=== PATIENT | male | born 2000 | race Two or more races ===

== ENCOUNTER → 2024-12-25 08:15 | Outpatient (BNVA) | payer OTHER, SELFPAY | PROVIDERS: Visit Provider Registered Nurse | DX: S60.212A Contusion of left wrist, initial encounter (principal); S63.502A Unspecified sprain of left wrist, initial encounter; S60.811A Abrasion of right wrist, initial encounter; S80.01XA Contusion of right knee, initial encounter; V53.0XXA Driver of pick-up truck or van injured in collision with car, pick-up truck or van in nontraffic accident, initial encounter; Y92.411 Interstate highway as the place of occurrence of the external cause; M23.91 Unspecified internal derangement of right knee | CPT/HCPCS: 73110; 73564; 99204 ==

== ENCOUNTER → 2024-12-28 13:09 | Outpatient (BNVA) | payer OTHER, SELFPAY | PROVIDERS: Visit Provider Physician Assistant Medical | DX: S60.212D Contusion of left wrist, subsequent encounter (principal); S63.502D Unspecified sprain of left wrist, subsequent encounter; S60.812D Abrasion of left wrist, subsequent encounter; S80.01XD Contusion of right knee, subsequent encounter; M23.91 Unspecified internal derangement of right knee; S83.411D Sprain of medial collateral ligament of right knee, subsequent encounter; V53 Occupant of pick-up truck or van injured in collision with car, pick-up truck or van; Y92.411 Interstate highway as the place of occurrence of the external cause | CPT/HCPCS: 99213 ==

== ENCOUNTER → 2025-01-08 11:07 | Outpatient (BNVA) | payer OTHER, SELFPAY | PROVIDERS: Visit Provider Physician Assistant Medical | DX: S60.212D Contusion of left wrist, subsequent encounter (principal); S63.502D Unspecified sprain of left wrist, subsequent encounter; S60.811D Abrasion of right wrist, subsequent encounter; S80.01XD Contusion of right knee, subsequent encounter; M23.91 Unspecified internal derangement of right knee; S83.411D Sprain of medial collateral ligament of right knee, subsequent encounter; V53 Occupant of pick-up truck or van injured in collision with car, pick-up truck or van | CPT/HCPCS: 99213 ==

== ENCOUNTER → 2025-02-07 09:36 | Outpatient (BNVA) | payer OTHER, SELFPAY | PROVIDERS: Visit Provider Physician Assistant Medical | DX: S60.212D Contusion of left wrist, subsequent encounter (principal); S63.502D Unspecified sprain of left wrist, subsequent encounter; S80.01XD Contusion of right knee, subsequent encounter; V53 Occupant of pick-up truck or van injured in collision with car, pick-up truck or van; M23.91 Unspecified internal derangement of right knee; Z02.79 Encounter for issue of other medical certificate | CPT/HCPCS: 99213 ==

== ENCOUNTER 2025-03-04 15:10 | Outpatient (REF) | payer OTHER, SELFPAY ==
--- NOTE | ~2025-03-04 | MR_ITS ---
EXAMINATION: MR KNEE WITHOUT CONTRAST, RIGHT CLINICAL INFORMATION: Effusion, pain. COMPARISON: X-ray 12/25/2024 TECHNIQUE: MRI of the knee without contrast was performed using routine sequences on a high-field scanner. FINDINGS: MENISCI: Medial Meniscus: Intact Lateral Meniscus: Intact LIGAMENTS: Cruciate: Intact Collateral: Intact EXTENSOR MECHANISM: Intact ARTICULAR CARTILAGE/BONE: Patellofemoral Compartment: No significant chondral loss Medial Compartment: No significant chondral loss Lateral Compartment: No significant chondral loss No fracture . No aggressive marrow replacing lesion. JOINT FLUID AND BURSAE: Small effusion. Trace Whittaker's cyst. Mild medial gastrocnemius muscle edema, perhaps strain. Subcutaneous edema. MR/MR knee RT wo con IMPRESSION: * Menisci appear intact without evidence of discrete tear. * No evidence of acute osseous findings. * Small effusion. * Mild medial gastrocnemius muscle edema, perhaps strain. Electronically signed by: Guzman Ness MD 03/06/2025 09:34 AM EDT
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
== END 2025-03-04 15:11 | disposition home or self-care (01) ==
LOC: HO.MRI 15:10
PROVIDERS: Visit Provider Internal Medicine
DX: M25.461 Effusion, right knee (principal); M25.561 Pain in right knee
CPT/HCPCS: 73721

== ENCOUNTER → 2025-03-04 15:23 | Outpatient (BNV) | payer OTHER, SELFPAY | PROVIDERS: Visit Provider Radiology Diagnostic Ultrasound | DX: M25.462 Effusion, left knee (principal) | CPT/HCPCS: 73721 ==

== ENCOUNTER → 2025-03-08 12:48 | Outpatient (BNVA) | payer OTHER, SELFPAY | PROVIDERS: Visit Provider Physician Assistant Medical | DX: S60.212D Contusion of left wrist, subsequent encounter (principal); S63.502D Unspecified sprain of left wrist, subsequent encounter; S80.01XD Contusion of right knee, subsequent encounter; S86.111D Strain of other muscle(s) and tendon(s) of posterior muscle group at lower leg level, right leg, subsequent encounter; V53 Occupant of pick-up truck or van injured in collision with car, pick-up truck or van; M25.461 Effusion, right knee | CPT/HCPCS: 99213 ==